=== PATIENT | female | born 1985 | race African-American/Black ===

== ENCOUNTER 2022-07-03 08:15 | Emergency (ER) | payer BC, OTHER ==
[~2022-07-03] VITALS: Ht 170.2 cm; Wt 74.8 kg
[2022-07-03] MEDS ORDERED: NS 1,000 ML IV ONE (09:55)
[2022-07-03] MEDS ORDERED: ONDANSETRON 4MG 2ML VIAL IV ONE (09:55)
[2022-07-03 10:29] LABS: BASO % 0.2 % (0.0-1.0); EOS % 0.4 % (0.0-3.0); LYMPH # 1.5 10^3/uL (1.5-5.0); MEAN CORPUSCULAR HEMOGLOBIN 29.9 pg (27.0-33.0); MEAN CORPUSCULAR VOLUME 85.5 fl (80.0-96.0); MONO # 0.5 10^3/uL (0.0-0.8); MONO % 5.5 % (2.0-8.0); NEUTROPHILS # 6.8 10^3/uL (1.5-8.5); NEUTROPHILS % 76.3 % (36.0-66.0); PLATELET COUNT, AUTOMATED 232 10^3/uL (150-450); RED BLOOD COUNT 4.68 10^6/uL (4.00-5.40); WHITE BLOOD COUNT 8.9 10^3/uL (4.0-10.0)
[2022-07-03 11:05] LABS: BLOOD UREA NITROGEN < 5 MG/DL (9-23); CALCIUM LEVEL 8.7 MG/DL (8.5-10.1); CARBON DIOXIDE LEVEL 21 MMOL/L (20-31); CHLORIDE LEVEL 105 MMOL/L (98-107); CREATININE FOR GFR 0.57 MG/DL (0.55-1.30); GLOMERULAR FILTRATION RATE > 60.0 (>60); GLUCOSE, FASTING 83 MG/DL (60-100); POTASSIUM SERUM 3.6 MMOL/L (3.5-5.1); SODIUM LEVEL 139 MMOL/L (136-145)
[2022-07-03 12:01] VITALS: BP 121/70
[2022-07-03] MEDS ORDERED: ONDA4TAB6 PO (12:04)
[2022-07-03] MEDS ORDERED: UNIS25TA3 PO (12:04)
[2022-07-03] MEDS ORDERED: PYRI25TA2 PO (12:04)
== END 2022-07-03 12:23 | disposition home or self-care (01) ==
LOC: M ED 08:15
DX: O21.0 Mild hyperemesis gravidarum (principal); Z3A.10 10 weeks gestation of pregnancy; Z79.899 Other long term (current) drug therapy
CPT/HCPCS: 76801; 80048; 81000; 85025; 87086; 96361; 96374; 99284; J2405

== ENCOUNTER 2023-07-05 10:25 | Emergency (ER) | payer OTHER ==
[~2023-07-05] VITALS: Ht 170.2 cm; Wt 83.0 kg
[~2023-07-05 10:25] MED LIST: ONDA4TAB6 PO; PYRI25TA2 PO; UNIS25TA3 PO
[2023-07-05] MEDS ORDERED: DELS1LIQ3 PO (10:43)
[2023-07-05] MEDS ORDERED: KETOROLAC TROMETHAMINE 10 MG TAB PO ONE (12:25)
[2023-07-05] MEDS ORDERED: AZIT-12 PO (14:41)
[2023-07-05 15:20] VITALS: BP 122/58; TEMP 98.1; O2SAT 98
== END 2023-07-05 15:18 | disposition home or self-care (01) ==
LOC: M ED 10:25
DX: R05.9 Cough, unspecified (principal); B97.4 Respiratory syncytial virus as the cause of diseases classified elsewhere; Z79.2 Long term (current) use of antibiotics